=== PATIENT | female | born 1950 | race Two or more races ===

== ENCOUNTER 2022-02-01 07:47 | Emergency (ER) | payer MEDICAID, OTHER ==
[~2022-02-01] VITALS: Ht 154.9 cm; Wt 54.5 kg
[2022-02-01] MEDS ORDERED: HYDROcodone-ACET 5/325MG TAB PO ONE ×2 (08:30→09:15)
[2022-02-01] MEDS ORDERED: ETOMIDATE (2MG/ML) 20ML VIAL IV ONE (09:45)
[2022-02-01] MEDS ORDERED: TRAM-297 PO (11:13)
[2022-02-01 12:23] VITALS: BP 135/71
== END 2022-02-01 12:28 | disposition home or self-care (01) ==
LOC: EDBD 07:47 → ER 07:47
DX: S43.015A Anterior dislocation of left humerus, initial encounter (principal); S43.014A Anterior dislocation of right humerus, initial encounter; W31.89XA Contact with other specified machinery, initial encounter; Y93.89 Activity, other specified; Y92.89 Other specified places as the place of occurrence of the external cause; Y99.8 Other external cause status
CPT/HCPCS: 23650; 71045; 73020; 99285; J7030